=== PATIENT | male | born 1970 | race Asian ===

== ENCOUNTER 2018-06-05 01:54 | Emergency (ER) | payer OTHER, SELFPAY ==
[2018-06-05 02:07] VITALS: BP 127/93; PULSE 73; RESP 18; TEMP 36.8; O2SAT 99; BMI 27.4
--- NOTE | 2018-06-05 02:28 | ED_ITS ---
HPI - Back Pain/Injury General Chief Complaint: Back Pain/Injury Stated Complaint: low back pain shooting down legs Time Seen by Provider: 06/05/18 01:55 Source: patient Mode of arrival: ambulatory Limitations: no limitations History of Present Illness HPI Narrative: 47-year-old male with history of type 1 diabetes presents to the emergency department the chief complaint of 4 days of worsening left lumbar pain with radiation around his left hip and lateral thigh. He denies any specific injury. He has no fever or chills or other systemic symptoms. He denies any abdominal pain. He has had no change of bowel bladder control. He denies nausea vomiting or diarrhea. He denies dysuria, frequency or urgency. He denies any numbness, tingling or weakness. He had musculoskeletal pain similar to this about 10 years ago. Related Data Home Medications Medication Instructions Recorded Confirmed metformin [Glucophage XR] 500 mg PO BID #0 10/25/16 Previous Rx's Medication Instructions Recorded oseltamivir [Tamiflu] 75 mg PO BID #10 cap 10/25/16 cyclobenzaprine 10 mg PO TID PRN #14 tab 06/05/18 hydrocodone-acetaminophen 1 tab PO Q4-6H PRN #14 tab 06/05/18 ketorolac 10 mg PO Q6H PRN #14 tab 06/05/18 PFSH Medical History Diabetes (Acute) Gout (Acute) HTN (hypertension) (Acute) Exam Initial Vital Signs Initial Vital Signs: Vital Signs Temperature 98.2 F 06/05/18 02:07 Pulse Rate 73 06/05/18 02:07 Respiratory Rate 18 06/05/18 02:07 Blood Pressure 127/93 H 06/05/18 02:07 Pulse Oximetry 99 06/05/18 02:07 Course Orders Ordered: Discontinued Medications Hydrocodone Bitart/Acetaminophen (Vicodin Prepack) 1 bottle MISC SEEINSTR ONE Stop: 06/05/18 02:34 Cyclobenzaprine HCl (Flexeril 10 Mg Prepack) 1 bottle MISC SEEINSTR ONE Stop: 06/05/18 02:39 Ketorolac Tromethamine (Toradol) 60 mg IM NOW ONE Stop: 06/05/18 02:33 Last Admin: 06/05/18 02:52 Dose: 60 mg Vital Signs - 8 hr 06/05/18 02:07 Temperature 98.2 F Pulse Rate 73 Respiratory Rate 18 Blood Pressure 127/93 H Pulse Oximetry 99 MDM - Back Pain/Injury Differential Diagnosis Differential diagnosis: Likely lumbar radiculopathy, sciatica, strain of lumbar region, renal colic, pyelonephritis, thoracic back pain and AAA Medical Records Attestation: I reviewed the patient's medical records. Discharge Plan Departure Patient Disposition: Home Clinical Impression: Strain of lumbar region Instructions: DI for Lumbar Radiculopathy Activity Restrictions/Additional Instructions: *You have been diagnosed with [ lumbar pain] *What to do: *Take medications as directed *Follow up with your primary care provider in 2-3 days, call for an appointment. Let them know you were seen in the Emergency Department and that we ask that you be seen in follow up *Return to ER if you should have any new, worsening or concerning symptoms , such as [ increasing pain, numbness or weakness of year lower extremity, difficulty controlling bowel or bladder, fever, abdominal pain, other bothersome symptoms] Prescriptions: New cyclobenzaprine 10 mg tablet 10 mg PO TID PRN (Reason: muscle spasm) Qty: 14 RF: 0 hydrocodone-acetaminophen 5-325 mg tablet 1 tab PO Q4-6H PRN (Reason: pain) Qty: 14 RF: 0 ketorolac 10 mg tablet 10 mg PO Q6H PRN (Reason: pain) Qty: 14 RF: 0 No Action metformin [Glucophage XR] 500 MG tablet extended release 24 hr 500 mg PO BID Qty: 0 RF: 0 oseltamivir [Tamiflu] 75 MG capsule 75 mg PO BID Qty: 10 RF: 0
[2018-06-05] MEDS: KETOROLAC 60 MG/2 ML VIAL IM (02:52)
[2018-06-05] MEDS: HYDROCODONE/ACET 5/325 PREPACK 1 BOTTLE MISC (03:19)
[2018-06-05] MEDS: CYCLOBENZAPRINE 10 MG PREPACK 1 BOTTLE MISC (03:19)
[2018-06-05 03:23] VITALS: BP 125/90; PULSE 72; RESP 18; TEMP 36.9; O2SAT 98
== END 2018-06-05 03:24 | disposition home or self-care (01) ==
PROVIDERS: Emergency Provider Emergency Medicine
DX: M54.5 Low back pain (principal)
CPT/HCPCS: 81003; 96372; 99282; 99283; J1885